=== PATIENT | female | born 1960 | race Caucasian/White ===

== ENCOUNTER 2023-01-05 08:14 | Outpatient (CLI) | payer OTHER, MEDICAID, SELFPAY ==
[2023-01-05 11:01] LABS: Chloride* 107 mmol/L (96-114)
[2023-01-05 11:02] LABS: Albumin* 3.9 g/dL (3.3-5.0); Sodium* 141 mmol/L (135-149)
[2023-01-05 11:04] LABS: Cholesterol* 232 mg/dL (90-199); Creatinine* 0.8 mg/dL (0.5-1.5); Estimated Glomerular Filt Rate 83 ml/min
[2023-01-05 11:05] LABS: Alanine Aminotransferase* 24 U/L (4-35); Alkaline Phosphatase* 48 U/L (40-150); Aspartate Amino Transferase* 25 U/L (12-35); Bilirubin Total* 0.4 mg/dL (0.1-1.5); Blood Urea Nitrogen* 17 mg/dL (7-30); Carbon Dioxide* 31 mmol/L (20-32); Glucose* 92 mg/dL (60-115); HDL Cholesterol* 57 mg/dL (>=50); LDL Cholesterol Calculated 131 mg/dL (<100); Total Protein* 6.6 g/dL (6.0-8.3); Triglycerides* 219 mg/dL (40-149)
== END 2023-01-05 08:15 | disposition home or self-care (01) ==
PROVIDERS: PCP Family Medicine; Visit Provider Family Medicine
DX: I10 Essential (primary) hypertension (principal); Z13.6 Encounter for screening for cardiovascular disorders
CPT/HCPCS: 80053; 80061

== ENCOUNTER 2023-03-03 07:47 | Outpatient (CLI) | payer OTHER, MEDICAID, SELFPAY | END 2023-03-03 07:48 | disposition home or self-care (01) | LOC: NFLDREF 03-05 01:20 | PROVIDERS: PCP Family Medicine; Referring Provider Family Medicine; Visit Provider Family Medicine | DX: I10 Essential (primary) hypertension (principal) | CPT/HCPCS: 80048 ==

== ENCOUNTER 2023-05-04 07:29 | Outpatient (CLI) | payer OTHER, MEDICAID, SELFPAY | END 2023-05-04 07:30 | disposition home or self-care (01) | LOC: NFLDREF 07:30 | PROVIDERS: PCP Family Medicine; Visit Provider Family Medicine | DX: I10 Essential (primary) hypertension (principal); E78.5 Hyperlipidemia, unspecified | CPT/HCPCS: 80048 ==

== ENCOUNTER 2024-01-28 07:51 | Outpatient (CLI) | payer OTHER, SELFPAY | END 2024-01-28 07:52 | disposition home or self-care (01) | LOC: NFLDREF 12:19 | PROVIDERS: PCP Family Medicine; Referring Provider Family Medicine; Visit Provider Family Medicine | DX: E78.5 Hyperlipidemia, unspecified (principal) | CPT/HCPCS: 80053; 80061 ==

== ENCOUNTER 2024-06-06 16:40 | Outpatient (CLI) | payer OTHER, SELFPAY ==
--- NOTE | 2024-06-06 17:00 | CRLHL7_ITS ---
For Patients: As a result of the Century Cures Act, medical imaging exams and procedure reports are released immediately into your electronic medical record. You may view this report before your referring provider. If you have questions, please contact your health care provider. BILATERAL SCREENING MAMMOGRAM WITH COMPUTER-AIDED DETECTION AND TOMOSYNTHESIS TECHNIQUE: CC and MLO views were obtained. These mammographic images have been obtained using full-field digital technique. These mammographic images were interpreted with the benefit of computer-aided detection. Breast tomosynthesis was used in this interpretation. COMPARISON FILM: 12/05/21, 04/16/20. FINDINGS: There are scattered areas of fibroglandular density. IMPRESSION: There is no radiographic evidence for malignancy. ASSESSMENT: BI-RADS Category 1: Negative RECOMMENDATION: Routine screening mammogram in 1 year. A lay language report of this examination will be provided to the patient. HENRRY OLIVERA M.D. Diagnostic Radiologist [email or web address] Transcribed: 2:[address]/Dictated by: Henrry Olivera MD @ 06/07/2024 11:20:00 AM (Electronically Signed)
== END 2024-06-06 16:41 | disposition home or self-care (01) ==
PROVIDERS: PCP Family Medicine; Visit Provider Family Medicine
DX: Z12.31 Encounter for screening mammogram for malignant neoplasm of breast (principal)
CPT/HCPCS: 77063; 77067

== ENCOUNTER 2025-02-15 11:10 | Outpatient (CLI) | payer OTHER, SELFPAY | END 2025-02-15 11:11 | disposition home or self-care (01) | LOC: NFLDREF 02-21 05:48 | PROVIDERS: PCP Family Medicine; Referring Provider Family Medicine; Visit Provider Family Medicine | DX: E78.5 Hyperlipidemia, unspecified (principal); I10 Essential (primary) hypertension | CPT/HCPCS: 80053; 80061 ==